=== PATIENT | male | born 1990 | race Caucasian/White ===

== ENCOUNTER → 2024-07-29 | Outpatient (REF) | payer OTHER | LOC: M LAB REF 16:17 | PROVIDERS: ATTEND Physician Assistant | DX: Z53.9 Procedure and treatment not carried out, unspecified reason (principal) ==

== ENCOUNTER → 2024-09-09 | Outpatient (REF) | payer OTHER | LOC: M LAB REF 16:18 | PROVIDERS: ATTEND Physician Assistant | DX: Z79.899 Other long term (current) drug therapy (principal) ==

== ENCOUNTER 2025-05-02 12:30 | Emergency (ER) | payer OTHER ==
[~2025-05-02] VITALS: Ht 182.9 cm; Wt 74.5 kg
[2025-05-02] MEDS ORDERED: AMPH1CAP14 (12:39)
[2025-05-02] MEDS ORDERED: ACET-683 PO (12:39)
[2025-05-02] MEDS: ONDANSETRON 4MG ORAL DISINTEGRATING TAB PO ONE (13:32)
[2025-05-02] MEDS: PERCOCET 5MG/325MG TAB PO ONE (13:35)
[2025-05-02] MEDS ORDERED: PERC5TAB12 PO (13:56)
[2025-05-02 14:01] VITALS: BP 131/81; TEMP 96.6; O2SAT 100
== END 2025-05-02 14:17 | disposition home or self-care (01) ==
LOC: M ED 12:30
DX: S62.392A Other fracture of third metacarpal bone, right hand, initial encounter for closed fracture (principal); S62.394A Other fracture of fourth metacarpal bone, right hand, initial encounter for closed fracture; W19.XXXA Unspecified fall, initial encounter; R22.31 Localized swelling, mass and lump, right upper limb; F90.9 Attention-deficit hyperactivity disorder, unspecified type; Z79.1 Long term (current) use of non-steroidal anti-inflammatories (NSAID); Z79.899 Other long term (current) drug therapy; Y92.9 Unspecified place or not applicable; Y93.89 Activity, other specified; Y99.9 Unspecified external cause status

== ENCOUNTER 2025-05-12 09:23 | Day surgery (SDC) | payer OTHER ==
[~2025-05-12] VITALS: Ht 182.9 cm; Wt 73.4 kg
[~2025-05-12 09:23] MED LIST: ACET-683 PO; AMPH1CAP14; PERC5TAB12 PO
[2025-05-12] MEDS: LR 1,000 ML IV SCH (09:55)
[2025-05-12] MEDS: ROPIvacaine 0.5% 30ML VIAL PN ONE (10:47)
[2025-05-12] MEDS: MIDAZOLAM INJ 2 MG/2 ML VIAL IV PRN (10:47)
[2025-05-12] MEDS: dexAMETHasone 10 MG/1 ML VIAL PRES.FREE PN ONE (10:47)
[2025-05-12] MEDS ORDERED: LIDOCAINE 2% 100 MG/5 ML SDV (FOR ANES.) As Ordered ONE (11:55)
[2025-05-12] MEDS ORDERED: dexAMETHasone 4 MG/ML 1 ML VIAL As Ordered ONE (11:55)
[2025-05-12] MEDS ORDERED: ACETAMINOPHEN 1000MG/100ML IV BAG As Ordered ONE (11:55)
[2025-05-12] MEDS ORDERED: ONDANSETRON 4MG 2ML VIAL As Ordered ONE (11:55)
[2025-05-12] MEDS: ceFAZolin SOD 2 GM IV ONCE IV ONE (13:30)
[2025-05-12] MEDS ORDERED: KETOROLAC 30 MG/ML 1 ML VIAL As Ordered ONE (13:39)
[2025-05-12] MEDS ORDERED: LR 1,000 ML IV SCH (15:30)
[2025-05-12] MEDS ORDERED: ONDANSETRON 4MG 2ML VIAL IV PRN (15:30)
[2025-05-12] MEDS ORDERED: HYDROMORPHONE HCL 0.5 MG/0.5 ML SYRINGE IV PRN (15:30)
[2025-05-12] MEDS ORDERED: PERC5TAB12 PO (15:50)
[2025-05-12 17:17] VITALS: BP 131/82; TEMP 97.5; O2SAT 97
== END 2025-05-12 17:18 | disposition home or self-care (01) ==
LOC: M SDC 09:23
PROVIDERS: ATTEND Orthopaedic Surgery Hand Surgery
DX: S62.322A Displaced fracture of shaft of third metacarpal bone, right hand, initial encounter for closed fracture (principal); S62.324A Displaced fracture of shaft of fourth metacarpal bone, right hand, initial encounter for closed fracture; W17.81XA Fall down embankment (hill), initial encounter; Y93.K1 Activity, walking an animal; Y92.9 Unspecified place or not applicable; F90.9 Attention-deficit hyperactivity disorder, unspecified type; Z79.899 Other long term (current) drug therapy
CPT/HCPCS: 25515; 76000; C1713; J0131; J0665; J0690; J1100; J1885; J2250; J2405; J2795; J3010

== ENCOUNTER → 2025-05-27 | Outpatient (CLI) | payer OTHER | LOC: M SOG 07:18 | PROVIDERS: ATTEND Physician Assistant | DX: S62.302A Unspecified fracture of third metacarpal bone, right hand, initial encounter for closed fracture (principal); S62.304A Unspecified fracture of fourth metacarpal bone, right hand, initial encounter for closed fracture ==

== ENCOUNTER → 2025-07-01 | Outpatient (CLI) | payer OTHER | LOC: M SOG 07:22 | PROVIDERS: ATTEND Physician Assistant | DX: S62.302D Unspecified fracture of third metacarpal bone, right hand, subsequent encounter for fracture with routine healing (principal); S62.304D Unspecified fracture of fourth metacarpal bone, right hand, subsequent encounter for fracture with routine healing ==